=== PATIENT | female | born 1930 | race Caucasian/White ===

== ENCOUNTER → 2016-06-09 | Outpatient (REF) | payer MEDICARE, OTHER ==
[~2016-06-09] MED LIST: /ADVA50050 IN; /ALEN70TA OR; /AUGM875TA OR; /CELE20CA PO; /MAGN64TA PO; /ONDA4TA JT; /TIOT18INH INH; /ZIAC5TA OR; ACET-654 PO; ACET500C OR; ACET500T PO; ACET65TA OR; ACID1CAP PO; ACIDCAP PO; ADVA250A INH; ALBU0.5N IN; ALBU17IN INH; ALBU83IN IN; ALBU83IN INH; ALBUTEROL INH; ALIG4CAP PO; ALIGN PO; ARTI99.0 OU; ASPI81TA PO; ASPI81TA3 OR; ASPI81TA85 PO; ATOR1TAB19 PO; ATOR1TAB21 PO; ATORVASTATIN PO; BACITAB PO; BISO10TA PO; BISO5TAB2 PO; BISO5TAB5 PO; BISOPROLOL-HCTZ PO; BROVANA INH; CALC-204 PO; CALC500T49 OR; CALCCHW12 OR; CARA1TAB2 PO; CEFT250T OR; CEFT500T OR; CEFT500T PO; CHEW500C2 PO; COLA100C2 OR; COMBVENT INH; D 101TAB PO; DEXILANT PO; DOCU10CA PO; DUONSOL INH; FLAG500T PO; FLEEENE4 PR; FLON0.05; FLON0.054; FLON1SPR; FLUT1LOT; FLUTICASONE; FLUTISP; FURO20TA2 PO; HYDRODIURIL PO; LASI20TA PO; LEVA500T PO; LIPI10TA PO; LIPITOR PO; LOPE2CA PO; MAAL600C PO; MACR100C3 PO; MAG-TAB OR; MAG400TA PO; MAGN250T OR; MAGN64TASA PO; MAGNESIUM OXIDE PO; METAMUCIL PO; MILKSUS OR; MILKSUS PO; MIRA3350 PO; MIRT1TAB PO; MIRT7.5T10 PO; MIRTAZAPINE PO; MUCI600T34 PO; MUCINEX OR; MUCOUS RELIEF PO; MUCU400T8 PO; MULTCAP PO; MULTIVIT PO; MULTTAB4 PO; Mirtazapine PO; NASA0.057; NASAL SPRAY; NYST50SS SS; NYSTATIN ORAL SS; NYSTPOW PO; OMEGA 369 PO; OMEGCAP9 PO; OMEP20CA3 PO; OMEP20TA7 OR; PANT20TA PO; PANT40TA2 PO; PANTOPROZOLE PO; PRED10TA2 OR; PRED1TAB32 PO; PRED20TA OR; PRED20TA PO; PRED50TA OR; PRED5PAK PO; PRED5TA PO; PRED5TAB OR; PULM0.5S IN; REME15TA PO; REME30TA PO; REMERON PO; SALI0.653; SENO17.2 OR; SPIR1CAP INH; SPIRIVA INH; SUCR1TA PO; SUCR1TAB56 PO; SYMB16INH INH; SYMBICORT INH; TRAM50TA2 PO; TRAZ50TA OR; TUMS500C PO; TUSSSUS5 PO; TYLE650T30 PO; ULTR50TA PO; VANC250C2 PO; VENTAER INH; VERAMIST; VITA100037 PO; VITA10006 PO; VITA400C29 PO; VITA500T OR; VITAD1000T PO; VITAMIN C PO; VITAMIN D PO; VITMTA PO; ZEBE5TAB PO; ZIAC1TAB PO; ZIAC2.5T PO; ZITH250T OR; [UNRECOGNIZED DRUG - OTHER] INH; [UNRECOGNIZED DRUG - OTHER] PO
[2016-06-09 14:27] LABS: ALBUMIN 3.5 GM/DL (3.2-5.2); ALBUMIN/GLOBULIN RATIO 1.25 (1.00-1.93); ALKALINE PHOSPHATASE 59 U/L (45-117); ALT/SGPT 67 U/L (12-78); ANION GAP 6 MEQ/L (8-16); AST/SGOT 53 U/L (15-37); BILIRUBIN,TOTAL 0.9 MG/DL (0.2-1.0); BLOOD UREA NITROGEN 19 MG/DL (7-18); CALCIUM LEVEL 8.9 MG/DL (8.8-10.2); CARBON DIOXIDE LEVEL 32 MEQ/L (21-32); CHLORIDE LEVEL 103 MEQ/L (98-107); CREATININE FOR GFR 0.86 MG/DL (0.55-1.02); GLOMERULAR FILTRATION RATE > 60.0 (>32); GLUCOSE, FASTING 106 MG/DL (83-110); POTASSIUM SERUM 4.7 MEQ/L (3.5-5.1); SODIUM LEVEL 141 MEQ/L (136-145); TOTAL PROTEIN 6.3 GM/DL (6.4-8.2)
== END ==
LOC: M SFHCPLAZ 10:24
PROVIDERS: ATTEND Internal Medicine
DX: I10 Essential (primary) hypertension (principal)

== ENCOUNTER → 2016-10-27 | Outpatient (REF) | payer MEDICARE, OTHER ==
[~2016-10-27] MED LIST changes: -CEFT500T PO; +CEFT500T3 PO
[2016-10-27 12:58] LABS: ALBUMIN 3.5 GM/DL (3.2-5.2); ALBUMIN/GLOBULIN RATIO 1.17 (1.00-1.93); ALKALINE PHOSPHATASE 64 U/L (45-117); ALT/SGPT 70 U/L (12-78); ANION GAP 7 MEQ/L (8-16); AST/SGOT 52 U/L (15-37); BILIRUBIN,TOTAL 0.6 MG/DL (0.2-1.0); BLOOD UREA NITROGEN 23 MG/DL (7-18); CARBON DIOXIDE LEVEL 32 MEQ/L (21-32); CHLORIDE LEVEL 106 MEQ/L (98-107); CHOLESTEROL LEVEL 149 MG/DL (<200); CREATININE FOR GFR 0.75 MG/DL (0.55-1.02); GLOMERULAR FILTRATION RATE > 60.0 (>32); GLUCOSE, FASTING 82 MG/DL (83-110); MAGNESIUM LEVEL 2.7 MG/DL (1.8-2.4); POTASSIUM SERUM 4.8 MEQ/L (3.5-5.1); SODIUM LEVEL 145 MEQ/L (136-145); TOTAL PROTEIN 6.5 GM/DL (6.4-8.2); TRIGLYCERIDES LEVEL 127 MG/DL (<150)
[2016-10-27 13:06] LABS: MEAN CORPUSCULAR HEMOGLOBIN 32.4 pg (27.0-33.0); MEAN CORPUSCULAR HGB CONC 32.5 g/dl (32.0-36.5); MEAN CORPUSCULAR VOLUME 99.5 fl (80.0-96.0); RED CELL DISTRIBUTION WIDTH 12.5 % (11.5-14.5); WHITE BLOOD COUNT 11.2 K/mm3 (4.0-10.0)
== END ==
LOC: M SFHCPLAZ 08:26
PROVIDERS: ATTEND Internal Medicine
DX: Z85.3 Personal history of malignant neoplasm of breast (principal); I10 Essential (primary) hypertension; E78.00 Pure hypercholesterolemia, unspecified; M81.0 Age-related osteoporosis without current pathological fracture

== ENCOUNTER → 2017-03-07 | Outpatient (REF) | payer MEDICARE, OTHER ==
[~2017-03-07] MED LIST changes: -ACET-654 PO; +ACET1TAB17 PO; +ASPI81TAEC PO; +AZIT-12 PO; +CALC500T36 PO; +CEFD1CAP8 PO; +CHOL4POW4 PO; +LEVA1TAB2 PO; -LEVA500T PO; -MUCI600T34 PO; +MUCI600T37 PO; +OMEG100011 PO; +PRED10TA2 PO; +VITA-110 PO; -VITA100037 PO; +VITA100067 PO; -VITA400C29 PO
[2017-03-07 14:15] LABS: ALBUMIN 3.4 GM/DL (3.2-5.2); ALBUMIN/GLOBULIN RATIO 1.06 (1.00-1.93); ALKALINE PHOSPHATASE 62 U/L (45-117); ALT/SGPT 40 U/L (12-78); ANION GAP 7 MEQ/L (8-16); AST/SGOT 35 U/L (15-37); BLOOD UREA NITROGEN 24 MG/DL (7-18); CALCIUM LEVEL 9.2 MG/DL (8.8-10.2); CARBON DIOXIDE LEVEL 26 MEQ/L (21-32); CHLORIDE LEVEL 109 MEQ/L (98-107); CREATININE FOR GFR 0.77 MG/DL (0.55-1.02); GLOMERULAR FILTRATION RATE > 60.0 (>32); GLUCOSE, FASTING 98 MG/DL (83-110); MAGNESIUM LEVEL 2.4 MG/DL (1.8-2.4); SODIUM LEVEL 142 MEQ/L (136-145); TOTAL PROTEIN 6.6 GM/DL (6.4-8.2)
[2017-03-07 14:16] LABS: POTASSIUM SERUM 5.5 MEQ/L (3.5-5.1)
== END ==
LOC: M SFHCPLAZ 09:28
PROVIDERS: ATTEND Internal Medicine
DX: I10 Essential (primary) hypertension (principal)

== ENCOUNTER 2017-03-15 01:52 | Inpatient (IN) | payer MEDICARE, OTHER ==
[~2017-03-15] VITALS: Ht 157.5 cm; Wt 47.2 kg
[~2017-03-15 01:52] MED LIST changes: -ASPI81TAEC PO; -AZIT-12 PO; -CALC500T36 PO; -CEFD1CAP8 PO; -CHOL4POW4 PO; -OMEG100011 PO; -PRED10TA2 PO
[2017-03-15] MEDS ORDERED: IPRATROPIUM 0.5MG/ALBUTEROL 2.5MG INH SOL UD 3ML (DUONEB)(J7620) NEB ONE (02:15)
[2017-03-15] MEDS ORDERED: methylPREDNISolone INJ 125 MG/2 ML VIAL (J2930) IV ONE (02:15)
[2017-03-15 02:26] LABS: BASO % 0.3 % (0.0-1.0); EOS # 0.5 10^3/uL (0.0-0.50); EOS % 5.8 % (0.0-3.0); IMMATURE GRANULOCYTE % 0.6 % (0-0); LYMPH # 0.9 10^3/uL (1.5-4.5); LYMPH % 9.7 % (24.0-44.0); MEAN CORPUSCULAR HEMOGLOBIN 31.7 pg (27.0-33.0); MEAN CORPUSCULAR HGB CONC 32.9 g/dl (32.0-36.5); MEAN CORPUSCULAR VOLUME 96.5 fl (80.0-96.0); MONO # 0.6 10^3/uL (0.0-0.8); MONO % 6.5 % (0.0-5.0); NEUTROPHILS # 6.9 10^3/uL (1.8-7.7); NEUTROPHILS % 77.1 % (36.0-66.0); PLATELET COUNT, AUTOMATED 246 10^3/uL (150-450)
[2017-03-15 02:37] LABS: ABG BASE EXCESS 1.4 (-2.0-2.0); ABG HCO3 24.4 MEQ/L (22.0-26.0); ABG PARTIAL PRESSURE CO2 33.7 mmHg (35.0-45.0); ABG PARTIAL PRESSURE O2 71.9 mmHg (75.0-100.0); ABG STANDARD HCO3 25.6 MEQ/L (22.0-26.0); ABG TOTAL CO2 25.4 MEQ/L (23.0-31.0); ABG pH (ARTERIAL) 7.477 UNITS (7.350-7.450)
[2017-03-15 02:58] LABS: ANION GAP 6 MEQ/L (8-16); BLOOD UREA NITROGEN 17 MG/DL (7-18); CALCIUM LEVEL 8.7 MG/DL (8.8-10.2); CARBON DIOXIDE LEVEL 29 MEQ/L (21-32); CHLORIDE LEVEL 103 MEQ/L (98-107); CREATININE FOR GFR 0.69 MG/DL (0.55-1.02); GLOMERULAR FILTRATION RATE > 60.0 (>32); GLUCOSE, FASTING 101 MG/DL (83-110); POTASSIUM SERUM 4.2 MEQ/L (3.5-5.1); SODIUM LEVEL 138 MEQ/L (136-145)
[2017-03-15] MEDS ORDERED: DOXYCYCLINE HYCLATE 100 MG in D5W MINI-BAG PLUS 100 ML IV ONE (04:00)
[2017-03-15] MEDS ORDERED: ACETAMINOPHEN TAB 650MG DOSE (2X325MG) PO PRN (04:45)
[2017-03-15] MEDS ORDERED: IPRATROPIUM 0.5MG/ALBUTEROL 2.5MG INH SOL UD 3ML (DUONEB)(J7620) NEB PRN (04:45)
[2017-03-15] MEDS ORDERED: ONDANSETRON 4MG/2ML VIAL (J2405) IV PRN (04:45)
--- NOTE | 2017-03-15 04:49 | HPEPDOC ---
General Date of Admission 03/15/17 Primary Care Physician: Maximiliano Clark Attending Physician: ARIEL BARBA MD Chief Complaint The patient is a 86-year-old female admitted with a reason for visit of oxygen issues. Source: Patient, Family Exam Limitations: No limitations History of Present Illness 86-year-old female with past medical history of hypertension, dyslipidemia, depression, GERD, COPD on 3 L of oxygen and steroid dependent, history of bilateral breast cancer status post lumpectomy, radiation, and tamoxifen presented to the ER with chief complaint of increased shortness of breath and a productive cough over last 1 week. The patient states that she has been having a cough productive of yellowish sputum over the last 1 week. This was also accompanied by an increase of shortness of breath compared to her baseline. The patient denies any sick contacts, but states that she has been feeling lethargic and tired with generalized aches and pains. She denies any acute complaints of fevers, chills, chest pain, palpitations, abdominal pain, PND, lower extremity swelling, or any nausea/vomiting. Home Medications Scheduled ([place] 3-6-9 Complex) 1 Cap Cap, 1 CAP PO DAILY, (Reported) (Acidophilus) 1 Cap Cap, 1 CAP PO DAILY, (Reported) (Flonase Allergy Relief) 50 Mcg/Act Spr, 1 SPRAY NA BID, (Reported) (Align) 4 Mg Cap, 4 MG PO TID, (Reported) Ascorbic Acid (Vitamin C) 1,000 Mg Tab, 1,000 MG PO DAILY, (Reported) Aspirin (Aspir-81) 81 Mg Tab, 81 MG PO DAILY, (Reported) Atorvastatin Calcium (Atorvastatin Calcium) 10 Mg Tab, 5 MG PO 3XW, (Reported) TUES, THURS, SAT Bisoprolol Fumarate (Bisoprolol Fumarate) 5 Mg Tab, 5 MG PO DAILY, (Reported) Budesonide/Formoterol (Symbicort 160-4.5 Mcg/Act) 60 Puff/Inhaler Aers, 2 PUFF INH BID, (Reported) Cholecalciferol (D 1000) 1,000 Unit Tab, 1,000 UNIT PO DAILY, (Reported) Guaifenesin (Mucus Relief) 400 Mg Tab, 400 MG PO DAILY, (Reported) Magnesium Chloride (Mag64) 64 Mg Tabcr, 64 MG PO DAILY, (Reported) Mirtazapine (Remeron) 30 Mg Tab, 30 MG PO QHS, (Reported) Multivitamins *[facility] STOCKED* (Thera M Plus *[facility] STOCKED*) 1 Tab Tab, 1 TAB PO DAILY, (Reported) Nystatin (Nystatin Oral Susp) 5 Ml Susp, 5 ML SS BID, (Reported) Pantoprazole Sodium (Pantoprazole Sodium) 40 Mg Tab, 40 MG PO DAILY, (Reported) Prednisone (Prednisone) 5 Mg Tab, 5 MG PO DAILY, (Reported) Scheduled PRN Albuterol Sulfate (Albuterol Sulfate) 2.5 Mg/3 Ml Nebu, 2.5 MG INH Q4HP PRN for SHORTNESS OF BREATH, (Reported) Albuterol Sulfate (Ventolin Hfa) 200 Puff/8 Gm Aers, 2 PUFF INH Q4HP PRN for SOB /WHEEZING, (Reported) Artificial Tears (Artificial Tears) 1.4 % Ava, 1 DROP OU PRN PRN for DRY EYES, ( Reported) Loperamide HCl (Loperamide HCl) 2 Mg Cap, 2 MG PO ASDIRECTED PRN for DIARRHEA Allergies Coded Allergies: Codeine (Verified Allergy, Intermediate, NAUSEA / SOB, 09/02/12) Quinolones (Verified Allergy, Intermediate, ANGIOEDEMA / SOB, 09/02/12) VERÓNICA Inhibitors (Verified Adverse Reaction, Severe, ANGIOEDEMA, 09/02/12) Azelastine (Verified Adverse Reaction, Intermediate, NASAL ULCERS, 09/02/12) Past Medical History Medical History As noted in HPI. Surgical History APPENDECTOMY 04/20/1960 CHOLECYSTECTOMY 04/20/1970 LUMPECTOMY, LEFT BREAST AND AXILLARY LYMPH NODE DISSECTION -RADIATION TX FOR BREAST CANCER 1990 LUMPECTOMY, RIGHT BREAST AND AXILLARY LYMPH NODE DISSECTION-RADIATION TX-FOR BREAST CANCER 04/20/1997 HYSTERECTOMY, TOTAL WITH BSO FOR ENDOMETRIAL DYSPLASIA 04/20/1999 BILATERAL CATARACTS REMOVAL- OD-01/2005, OS-05/0205/20/05,02/17/05 COLONOSCOPY 08/31/2006 MESENTERIC VASCULAR STENT PLACEMENT 12/18/2010 UPPER ENDOSCOPY 12/05/2012 Family History Significant Family History: No pertinent family hx Social History * Smoker: former Smoker Alcohol: Denies Drugs: denies Lives by herself, ambulates with a single-point cane. Is functionally independent at baseline. Review of Symptoms Other systems 10 point review of systems negative unless otherwise specified in HPI. Physical Examination General Exam: Positive: Alert, Cooperative, No Acute Distress ENT Exam: Positive: Atraumatic, Mucous membr. moist/pink Neck Exam: Negative: JVD Chest Exam: Positive: Diminished Heart Exam: Positive: Rate Normal, Normal S1, Normal S2 Abdomen Exam: Positive: Soft, Negative: Tenderness Extremity Exam: Negative: Tenderness, Swelling Psych Exam: Positive: Oriented x 3 Vital Signs Vital Signs Date Time Temp Pulse Resp B/P (MAP) Pulse Ox O2 Delivery O2 Flow Rate FiO2 03/15/17 04:26 101.7 03/15/17 04:12 20 95 Nasal Cannula 3.0 03/15/17 04:07 90 Laboratory Data Labs 24H Laboratory Tests 2 03/15/17 02:15: Immature Granulocyte % (Auto) 0.6H, White Blood Count 9.0, Red Blood Count 4.32 , Hemoglobin 13.7, Hematocrit 41.7, Mean Corpuscular Volume 96.5H, Mean Corpuscular Hemoglobin 31.7, Mean Corpuscular Hemoglobin Concent 32.9, Red Cell Distribution Width 13.0, Platelet Count 246, Neutrophils (%) (Auto) 77.1H, Lymphocytes (%) (Auto) 9.7L, Monocytes (%) (Auto) 6.5H, Eosinophils (%) (Auto) 5.8H, Basophils (%) (Auto) 0.3, Neutrophils # (Auto) 6.9, Lymphocytes # (Auto) 0.9L, Monocytes # (Auto) 0.6, Eosinophils # (Auto) 0.5, Basophils # (Auto) 0.0, Immature Granulocyte # (Auto) 0.1H, Nucleated Red Blood Cells % (auto) 0.0, Anion Gap 6L, Glomerular Filtration Rate > 60.0, Lactic Acid Level 1.9, Blood Urea Nitrogen 17, Creatinine 0.69, Sodium Level 138, Potassium Level 4.2, Chloride Level 103, Carbon Dioxide Level 29, Calcium Level 8.7L, LC-Cmc-W-Type Natriuretic Peptide 467H 03/15/17 02:23: Blood Gas Bicarbonate Standard 25.6, Arterial Blood pH 7.477H, Arterial Blood Partial Pressure CO2 33.7L, Arterial Blood Partial Pressure O2 71.9L, Arterial Blood Total CO2 25.4, Arterial Blood HCO3 24.4, Arterial Blood Base Excess 1.4, Arterial Blood Oxygen Saturation 95.9 CBC/BMP Laboratory Tests 03/15/17 02:15 Red Blood Count 4.32, Mean Corpuscular Volume 96.5 H, Mean Corpuscular Hemoglobin 31.7, Mean Corpuscular Hemoglobin Concent 32.9, Red Cell Distribution Width 13.0, Neutrophils (%) (Auto) 77.1 H, Lymphocytes (%) (Auto) 9.7 L, Monocytes (%) (Auto) 6.5 H, Eosinophils (%) (Auto) 5.8 H, Basophils (%) ( Auto) 0.3, Neutrophils # (Auto) 6.9, Lymphocytes # (Auto) 0.9 L, Monocytes # ( Auto) 0.6, Eosinophils # (Auto) 0.5, Basophils # (Auto) 0.0, Calcium Level 8.7 L Plan / VTE VTE Prophylaxis Ordered?: Yes Plan Plan COPD Exacerbation CXR, ABG noted Blood culture, sputum culture, MRSA screen, respiratory panel ordered We will start the patient on Rocephin and azithromycin Solu-Medrol 40 mg every 8 hours IV Inhaler and nebulizer regimen as ordered We will continue to monitor the patient's respiratory status History of CAD Continue aspirin, statin, bisoprolol Hypertension, controlled Continue current regimen GERD Continue PPI Depression, stable Continue mirtazapine History of bilateral breast cancer status post lumpectomy, radiation, and tamoxifen DVT prophylaxis Lovenox subcutaneous CODE STATUS: DNR This patient will be admitted under the service of Dr. Barba, who will begin to follow the patient on 03/15/17 at 7 AM. MANDI TYSON MD Mar 15, 2017 04:49
[2017-03-15] MEDS ORDERED: SPIR1CAP INH (04:50)
[2017-03-15] MEDS ORDERED: ASPI81TAEC PO (04:50)
[2017-03-15] MEDS ORDERED: OMEG100011 PO (04:50)
[2017-03-15] MEDS ORDERED: CALC500T36 PO (04:50)
[2017-03-15] MEDS ORDERED: FURO20TA2 PO (04:50)
[2017-03-15] MEDS ORDERED: BACITAB PO (04:50)
[2017-03-15] MEDS ORDERED: CHOL4POW4 PO (04:50)
[2017-03-15] MEDS ORDERED: ALBU83IN INH (04:50)
[2017-03-15] MEDS: AZITHROMYCIN INJ 500 MG, VIAL MATE ADAPTER 1 EACH in D5W 250 ML IV SCH (05:00)
[2017-03-15] MEDS ORDERED: CHOLESTYRAMINE 4 GM PWD PKT PO PRN (05:30)
[2017-03-15 06:00] VITALS: BP 146/67
[2017-03-15] MEDS ORDERED: cefTRIAXone SOD 1 GM in D5W 50 ML IV SCH (06:00)
[2017-03-15] MEDS: SYMBICORT 160/4.5MCG INHALER 6GM INH SCH ×2 (07:22→21:07)
[2017-03-15] MEDS: IPRATROPIUM 0.5MG/ALBUTEROL 2.5MG INH SOL UD 3ML (DUONEB)(J7620) NEB SCH ×5 (07:22→23:13)
[2017-03-15 07:45] VITALS: BP 106/50
--- NOTE | 2017-03-15 08:30 | ECGEPIP ---
Stationary ECG Study [facility] - ED Test Date: 2017-03-15 Pat Name: ESTEFANIA GARCIA Department: Room: [place] [address] Gender: F Marketing Ambassador: clari : [id number] Requested By: JÚNIOR Barrow Order Number: [id number] Reading MD: Lizz Ramos Measurements Intervals Rolfe Rate: 85 P: 45 LA: 126 QRS: -26 QRSD: 77 T: 51 QT: 329 QTc: 393 Interpretive Statements SINUS RHYTHM POSSIBLE LEFT ATRIAL ENLARGEMENT BORDERLINE LEFT AXIS DEVIATION BASELINE ARTIFACT LIMITS INTERPRETATION Electronically Signed On 03-15-2017 8:29:52 EDT by Lizz Ramos
--- NOTE | 2017-03-15 09:10 | REP ---
PORTABLE CHEST: AP portable view of the chest is performed and compared to prior study of 12/01/2016. Interstitial fibrosis is again seen in the lung bases, stable. No definite superimposed acute infiltrate is seen. Heart is not significantly enlarged. There is calcification and tortuosity of the thoracic aorta. The mediastinal silhouette is unchanged. IMPRESSION: Stable chronic fibrotic changes without acute infiltrate. Signed by Mele Salazar MD 03/15/2017 01:00 P
[2017-03-15] MEDS: ASCORBIC ACID 500 MG TAB PO SCH (09:26)
[2017-03-15] MEDS: LACTOBACILLUS ACIDOPHILUS CAP (BACID) PO SCH (09:26)
[2017-03-15] MEDS: ENOXAPARIN 30 MG/0.3 ML SYR (J1650) SC SCH (09:26)
[2017-03-15] MEDS: BISOPROLOL FUMARATE 5 MG TAB PO SCH (09:26)
[2017-03-15] MEDS: MULTIVITAMINS/MINERALS THERAP 1 TAB PO SCH (09:26)
[2017-03-15] MEDS: ASPIRIN 81 MG ENTERIC TAB PO SCH (09:26)
[2017-03-15] MEDS: VITAMIN D 1,000 INTERNATIONAL UNITS TABLET PO SCH (09:26)
[2017-03-15] MEDS: MAGNESIUM CHLORIDE 64 MG TABCR (SLO MAG) PO SCH (09:34)
[2017-03-15] MEDS: POLYVINYL ALCOHOL OPHTH SOLN 15 ML(LIQUITEARS) OU SCH ×2 (09:34→21:24)
[2017-03-15] MEDS: FLUTICASONE PROP 0.05% NASAL SPRAY 16 GM (FLONASE) SCH ×2 (09:34→21:24)
[2017-03-15] MEDS ORDERED: methylPREDNISolone INJ 40 MG/1 ML VIAL (J2920) IV SCH (10:00)
[2017-03-15] MEDS: CEFEPIME HCL 1 GM in D5W 50 ML IV SCH (12:25)
[2017-03-15 16:10] VITALS: BP 116/57
--- NOTE | 2017-03-15 16:59 | IPN ---
DATE: 03/15/2017 The patient is seen and examined. Reported improved respiration. Reported a bit of shakiness, possibly secondary to steroids. Denies any chest pain, pressure or discomfort. Continues to have cough. Denies any fevers or chills. VITAL SIGNS: Temperature 97.6, pulse 82, respirations 20, blood pressure 106/50, pulse oximetry 100% on three liters nasal cannula. LABORATORY DATA: WBC 9, hemoglobin and hematocrit 13.7/41.7, platelets 246. Chemistry: Sodium 138, potassium 4.2, chloride 103, bicarbonate 29, BUN 17, creatinine 0.69. PHYSICAL EXAMINATION: GENERAL: The patient is alert and oriented times three, in no acute distress. HEENT: Normocephalic, atraumatic. PULMONARY: Diminished breath sounds bilaterally. CARDIAC: Regular rate and rhythm with normal S1, S2. ABDOMEN: Soft, nontender. Positive bowel sounds. EXTREMITIES: No clubbing, cyanosis, or edema. ASSESSMENT AND PLAN: This is an 86-year-old female patient with underlying medical history of hypertension, dyslipidemia, depression, gastroesophageal reflux disease (GERD), chronic obstructive pulmonary disease (COPD) on three liters of oxygen at home, steroid dependent, history of bilateral breast cancer status post lumpectomy, radiation, tamoxifen who presented to the emergency room with shortness of breath and productive cough for one week. PROBLEM LIST: 1. Acute chronic obstructive pulmonary disease (COPD) exacerbation, possibly secondary to community-acquired bacterial pneumonia. The patient has a history of Pseudomonas in sputum cultures. Continue azithromycin, Rocephin switched to cefepime for pseudomonal coverage. Solu-Medrol, taper as tolerated. Continue inhalers and nebulizers and followup cultures. 2. Coronary artery disease. Continue aspirin, statin. The patient does not have any chest pain. Monitor blood pressure. Continue beta blockers. 3. Depression. Continue home medication. 4. Gastroesophageal reflux disease (GERD). Continue current medication. 5. Dyslipidemia. Continue statin. 6. Hypertension. Continue current medication. Monitor blood pressure. 7. History of breast cancer. Continue tamoxifen. Status post lumpectomy and radiation. Outpatient followup. 8. Deep vein thrombosis (DVT) prophylaxis, Lovenox subcutaneous. DISPOSITION: The patient is DO NOT RESUSCITATE (DNR), pending clinical improvement. We will transfer the patient to the medical/surgical floor.
[2017-03-15 19:15] VITALS: BP 142/64
[2017-03-15] MEDS: MIRTAZAPINE 15 MG TAB PO SCH (21:23)
[2017-03-15] MEDS: methylPREDNISolone INJ 40 MG/1 ML VIAL (J2920) IV SCH (21:24)
[2017-03-15 22:00] VITALS: BP 110/53
[2017-03-16] MEDS: IPRATROPIUM 0.5MG/ALBUTEROL 2.5MG INH SOL UD 3ML (DUONEB)(J7620) NEB SCH ×6 (03:09→23:01)
[2017-03-16] MEDS: AZITHROMYCIN INJ 500 MG, VIAL MATE ADAPTER 1 EACH in D5W 250 ML IV SCH (05:00)
[2017-03-16 06:00] VITALS: BP 151/70
[2017-03-16 06:42] LABS: BASO % 0.1 % (0.0-1.0); IMMATURE GRANULOCYTE % 0.4 % (0-0); LYMPH # 0.8 10^3/uL (1.5-4.5); LYMPH % 8.7 % (24.0-44.0); MEAN CORPUSCULAR HEMOGLOBIN 31.3 pg (27.0-33.0); MEAN CORPUSCULAR HGB CONC 32.8 g/dl (32.0-36.5); MEAN CORPUSCULAR VOLUME 95.5 fl (80.0-96.0); MONO # 0.5 10^3/uL (0.0-0.8); NEUTROPHILS # 8.1 10^3/uL (1.8-7.7); NEUTROPHILS % 85.8 % (36.0-66.0); PLATELET COUNT, AUTOMATED 229 10^3/uL (150-450); RED CELL DISTRIBUTION WIDTH 13.2 % (11.5-14.5); WHITE BLOOD COUNT 9.4 10^3/uL (4.0-10.0)
[2017-03-16 07:02] LABS: ANION GAP 6 MEQ/L (8-16); BLOOD UREA NITROGEN 22 MG/DL (7-18); CALCIUM LEVEL 8.4 MG/DL (8.8-10.2); CARBON DIOXIDE LEVEL 28 MEQ/L (21-32); CHLORIDE LEVEL 106 MEQ/L (98-107); CREATININE FOR GFR 0.76 MG/DL (0.55-1.02); GLOMERULAR FILTRATION RATE > 60.0 (>32); GLUCOSE, FASTING 223 MG/DL (83-110); MAGNESIUM LEVEL 2.5 MG/DL (1.8-2.4); POTASSIUM SERUM 4.5 MEQ/L (3.5-5.1); SODIUM LEVEL 140 MEQ/L (136-145)
[2017-03-16] MEDS: SYMBICORT 160/4.5MCG INHALER 6GM INH SCH ×2 (07:42→21:00)
[2017-03-16] MEDS: LACTOBACILLUS ACIDOPHILUS CAP (BACID) PO SCH (09:12)
[2017-03-16] MEDS: MAGNESIUM CHLORIDE 64 MG TABCR (SLO MAG) PO SCH (09:12)
[2017-03-16] MEDS: methylPREDNISolone INJ 40 MG/1 ML VIAL (J2920) IV SCH ×2 (09:13→21:17)
[2017-03-16] MEDS: ENOXAPARIN 30 MG/0.3 ML SYR (J1650) SC SCH (09:13)
[2017-03-16] MEDS: ASCORBIC ACID 500 MG TAB PO SCH (09:13)
[2017-03-16] MEDS: FLUTICASONE PROP 0.05% NASAL SPRAY 16 GM (FLONASE) SCH ×2 (09:14→21:17)
[2017-03-16] MEDS: ASPIRIN 81 MG ENTERIC TAB PO SCH (09:14)
[2017-03-16] MEDS: VITAMIN D 1,000 INTERNATIONAL UNITS TABLET PO SCH (09:14)
[2017-03-16] MEDS: BISOPROLOL FUMARATE 5 MG TAB PO SCH (09:14)
[2017-03-16] MEDS: POLYVINYL ALCOHOL OPHTH SOLN 15 ML(LIQUITEARS) OU SCH ×2 (09:14→21:17)
[2017-03-16] MEDS: MULTIVITAMINS/MINERALS THERAP 1 TAB PO SCH (09:14)
[2017-03-16] MEDS: ATORVASTATIN 10 MG TAB PO SCH (09:14)
[2017-03-16] MEDS ORDERED: MIRALAX *UNIT DOSE* 17GM PACKET PO PRN (10:45)
[2017-03-16] MEDS: CEFEPIME HCL 1 GM in D5W 50 ML IV SCH (12:35)
[2017-03-16] MEDS: SENOKOT S TAB PO SCH ×2 (12:35→21:18)
[2017-03-16 14:00] VITALS: BP 135/62
--- NOTE | 2017-03-16 15:12 | IPN ---
DATE: 03/16/2017 The patient is seen and examined. No acute events overnight. Denies any chest pain, pressure or discomfort. Respiratory much improved. Continued to have a nonproductive cough. No fevers or chills. VITAL SIGNS: Temperature 98.5, pulse 88, respirations 20, blood pressure 135/62, pulse oximetry 98% on one liter nasal cannula. LABORATORY DATA: WBC 9.4, hemoglobin and hematocrit 11.8/36, platelets 229. Chemistry: Sodium 140, potassium 4.5, chloride 106, bicarbonate 28, BUN 22, creatinine 0.76. PHYSICAL EXAMINATION: GENERAL: Patient alert and oriented times three, in no acute distress. HEENT: Normocephalic, atraumatic. PULMONARY: Diminished breath sounds bilaterally. CARDIAC: Regular rate and rhythm with normal S1, S2. ABDOMEN: Soft, nontender. Positive bowel sounds. EXTREMITIES: No clubbing, cyanosis, or edema. ASSESSMENT AND PLAN: This is an 86-year-old female patient with underlying medical history of hypertension, dyslipidemia, depression, gastroesophageal reflux disease (GERD), chronic obstructive pulmonary disease (COPD) on three liters of oxygen at home, steroid dependent, history of bilateral breast cancer status post lobectomy, radiation, tamoxifen who presented to the emergency room with shortness of breath and productive cough for one week. PROBLEM LIST: 1. Acute chronic obstructive pulmonary disease (COPD) exacerbation, possibly secondary to community-acquired bacterial pneumonia. The patient has a history of Pseudomonas in sputum. Continue azithromycin and cefepime, Solu-Medrol, taper as tolerated. Continue inhalers and nebulizer treatments and followup cultures. 2. Coronary artery disease. Continue aspirin and statin. The patient does not have any chest pain. Continue to monitor. Continue beta blockers. 3. Depression. Continue home medication. 4. Gastroesophageal reflux disease (GERD). Continue proton pump inhibitor (PPI). 5. Dyslipidemia. Continue statin. 6. Hypertension. Continue current medication. Monitor blood pressure. 7. History of breast cancer. Continue tamoxifen after discharge. Status post lobectomy and radiation. Outpatient followup. 8. Deep vein thrombosis (DVT) prophylaxis. Lovenox subcutaneous. DISPOSITION: The patient is DO NOT RESUSCITATE (DNR), pending clinical improvement.
[2017-03-16] MEDS: MIRTAZAPINE 15 MG TAB PO SCH (21:18)
[2017-03-16 22:00] VITALS: BP 144/67
[2017-03-17] MEDS: IPRATROPIUM 0.5MG/ALBUTEROL 2.5MG INH SOL UD 3ML (DUONEB)(J7620) NEB SCH ×6 (03:47→23:23)
[2017-03-17] MEDS: AZITHROMYCIN INJ 500 MG, VIAL MATE ADAPTER 1 EACH in D5W 250 ML IV SCH (05:02)
[2017-03-17 06:00] VITALS: BP 149/67
[2017-03-17 07:42] LABS: BASO % 0.1 % (0.0-1.0); LYMPH # 0.8 10^3/uL (1.5-4.5); LYMPH % 6.5 % (24.0-44.0); MEAN CORPUSCULAR HEMOGLOBIN 31.1 pg (27.0-33.0); MEAN CORPUSCULAR VOLUME 97.4 fl (80.0-96.0); MONO # 0.6 10^3/uL (0.0-0.8); MONO % 4.8 % (0.0-5.0); NEUTROPHILS # 10.7 10^3/uL (1.8-7.7); NEUTROPHILS % 87.6 % (36.0-66.0); PLATELET COUNT, AUTOMATED 239 10^3/uL (150-450); RED CELL DISTRIBUTION WIDTH 13.5 % (11.5-14.5); WHITE BLOOD COUNT 12.2 10^3/uL (4.0-10.0)
[2017-03-17] MEDS: SYMBICORT 160/4.5MCG INHALER 6GM INH SCH ×2 (07:42→20:15)
[2017-03-17 08:00] LABS: ANION GAP 6 MEQ/L (8-16); BLOOD UREA NITROGEN 28 MG/DL (7-18); CALCIUM LEVEL 8.7 MG/DL (8.8-10.2); CARBON DIOXIDE LEVEL 29 MEQ/L (21-32); CHLORIDE LEVEL 105 MEQ/L (98-107); CREATININE FOR GFR 0.67 MG/DL (0.55-1.02); GLOMERULAR FILTRATION RATE > 60.0 (>32); GLUCOSE, FASTING 194 MG/DL (83-110); MAGNESIUM LEVEL 2.8 MG/DL (1.8-2.4); POTASSIUM SERUM 4.9 MEQ/L (3.5-5.1); SODIUM LEVEL 140 MEQ/L (136-145)
[2017-03-17] MEDS: VITAMIN D 1,000 INTERNATIONAL UNITS TABLET PO SCH (08:49)
[2017-03-17] MEDS: MULTIVITAMINS/MINERALS THERAP 1 TAB PO SCH (08:49)
[2017-03-17] MEDS: BISOPROLOL FUMARATE 5 MG TAB PO SCH (08:49)
[2017-03-17] MEDS: LACTOBACILLUS ACIDOPHILUS CAP (BACID) PO SCH (08:49)
[2017-03-17] MEDS: SENOKOT S TAB PO SCH ×2 (08:49→20:40)
[2017-03-17] MEDS: POLYVINYL ALCOHOL OPHTH SOLN 15 ML(LIQUITEARS) OU SCH ×2 (08:50→20:41)
[2017-03-17] MEDS: predniSONE 20 MG TAB PO SCH (08:50)
[2017-03-17] MEDS: FLUTICASONE PROP 0.05% NASAL SPRAY 16 GM (FLONASE) SCH ×2 (08:50→20:41)
[2017-03-17] MEDS: ASPIRIN 81 MG ENTERIC TAB PO SCH (08:50)
[2017-03-17] MEDS: MAGNESIUM CHLORIDE 64 MG TABCR (SLO MAG) PO SCH (08:50)
[2017-03-17] MEDS: ASCORBIC ACID 500 MG TAB PO SCH (08:50)
[2017-03-17] MEDS: ENOXAPARIN 30 MG/0.3 ML SYR (J1650) SC SCH (08:50)
[2017-03-17] MEDS: CEFEPIME HCL 1 GM in D5W 50 ML IV SCH (13:58)
[2017-03-17 14:00] VITALS: BP 140/63
--- NOTE | 2017-03-17 16:21 | IPN ---
DATE: 03/17/2017 The patient is seen and examined. No acute events overnight. Denies any chest pain, pressure or discomfort. VITAL SIGNS: Temperature 97.7, pulse 82, respirations 19, blood pressure 140/63, pulse oximetry 99% on 2 liters nasal cannula. LABORATORY DATA: WBC 12.2, hemoglobin and hematocrit 11.8/36.9, platelets 239. Chemistry: Sodium 140, potassium 4.9, chloride 105, bicarbonate 29, BUN 28, creatinine 0.67, C-reactive protein down to 1.46. PHYSICAL EXAMINATION: GENERAL: Patient alert and oriented times three, in no acute distress. HEENT: Normocephalic, atraumatic. PULMONARY: Diminished breath sounds bilaterally. CARDIAC: Regular rate and rhythm, normal S1, S2. ABDOMEN: Soft, nontender. Positive bowel sounds. EXTREMITIES: No clubbing, cyanosis, or edema. ASSESSMENT AND PLAN: This is an 87-year-old female patient with underlying medical history of hypertension, dyslipidemia, depression, gastroesophageal reflux disease (GERD), chronic obstructive pulmonary disease (COPD) on 3 liters of oxygen at home, steroid dependent, history of bilateral breast cancer status post lumpectomy, radiation, tamoxifen. Patient presented to the emergency room with shortness of breath and productive cough for one week. 1. Acute chronic obstructive pulmonary disease (COPD) exacerbation, possibly secondary to community-acquired bacterial pneumonia. The patient has a history of Pseudomonas in sputum. Azithromycin and cefepime. Solu-Medrol, taper steroid to prednisone. Nebulizer treatments. Followup cultures. 2. Coronary artery disease. Continue aspirin and statin. Patient does not have any chest pain. Continue to monitor. Continue beta blockers. 3. Depression. Continue home medication. 4. Gastroesophageal reflux disease (GERD). Continue proton pump inhibitor (PPI). 5. Dyslipidemia. Continue statin. 6. Hypertension. Continue current medication. Monitor blood pressure. 7. History of breast cancer. Continue current medication. Followup after discharge. Status post lumpectomy and radiation. Outpatient followup. 8. Deep venous thrombosis (DVT) prophylaxis. Lovenox subcutaneous. DISPOSITION: The patient is DO NOT RESUSCITATE. Pending clinical improvement. Likely discharge over the next 24 hours.
[2017-03-17] MEDS: MIRTAZAPINE 15 MG TAB PO SCH (20:40)
[2017-03-17 22:00] VITALS: BP 121/69
[2017-03-18] MEDS: IPRATROPIUM 0.5MG/ALBUTEROL 2.5MG INH SOL UD 3ML (DUONEB)(J7620) NEB SCH ×3 (03:13→11:11)
[2017-03-18 06:00] VITALS: BP 133/71
[2017-03-18 06:13] LABS: BASO % 0.1 % (0.0-1.0); EOS % 0.2 % (0.0-3.0); IMMATURE GRANULOCYTE % 0.8 % (0-0); LYMPH # 2.8 10^3/uL (1.5-4.5); MEAN CORPUSCULAR HEMOGLOBIN 31.4 pg (27.0-33.0); MEAN CORPUSCULAR HGB CONC 32.5 g/dl (32.0-36.5); MEAN CORPUSCULAR VOLUME 96.4 fl (80.0-96.0); MONO # 1.1 10^3/uL (0.0-0.8); MONO % 8.4 % (0.0-5.0); NEUTROPHILS # 9.4 10^3/uL (1.8-7.7); NEUTROPHILS % 69.5 % (36.0-66.0); PLATELET COUNT, AUTOMATED 262 10^3/uL (150-450); RED CELL DISTRIBUTION WIDTH 13.7 % (11.5-14.5); WHITE BLOOD COUNT 13.5 10^3/uL (4.0-10.0)
[2017-03-18 06:40] LABS: ANION GAP 7 MEQ/L (8-16); BLOOD UREA NITROGEN 28 MG/DL (7-18); CALCIUM LEVEL 8.5 MG/DL (8.8-10.2); CARBON DIOXIDE LEVEL 28 MEQ/L (21-32); CHLORIDE LEVEL 109 MEQ/L (98-107); CREATININE FOR GFR 0.71 MG/DL (0.55-1.02); GLOMERULAR FILTRATION RATE > 60.0 (>32); GLUCOSE, FASTING 86 MG/DL (83-110); MAGNESIUM LEVEL 2.7 MG/DL (1.8-2.4); POTASSIUM SERUM 4.4 MEQ/L (3.5-5.1); SODIUM LEVEL 144 MEQ/L (136-145)
[2017-03-18] MEDS: SYMBICORT 160/4.5MCG INHALER 6GM INH SCH (07:43)
[2017-03-18] MEDS: SENOKOT S TAB PO SCH (08:24)
[2017-03-18] MEDS: LACTOBACILLUS ACIDOPHILUS CAP (BACID) PO SCH (08:24)
[2017-03-18] MEDS: ATORVASTATIN 10 MG TAB PO SCH (08:24)
[2017-03-18 08:25] VITALS: BP 133/71
[2017-03-18] MEDS: ASPIRIN 81 MG ENTERIC TAB PO SCH (08:25)
[2017-03-18] MEDS: predniSONE 20 MG TAB PO SCH (08:25)
[2017-03-18] MEDS: BISOPROLOL FUMARATE 5 MG TAB PO SCH (08:25)
[2017-03-18] MEDS: VITAMIN D 1,000 INTERNATIONAL UNITS TABLET PO SCH (08:25)
[2017-03-18] MEDS: ASCORBIC ACID 500 MG TAB PO SCH (08:25)
[2017-03-18] MEDS: MULTIVITAMINS/MINERALS THERAP 1 TAB PO SCH (08:25)
[2017-03-18] MEDS: POLYVINYL ALCOHOL OPHTH SOLN 15 ML(LIQUITEARS) OU SCH (08:26)
[2017-03-18] MEDS: MAGNESIUM CHLORIDE 64 MG TABCR (SLO MAG) PO SCH (08:26)
[2017-03-18] MEDS: ENOXAPARIN 30 MG/0.3 ML SYR (J1650) SC SCH (08:26)
[2017-03-18] MEDS: FLUTICASONE PROP 0.05% NASAL SPRAY 16 GM (FLONASE) SCH (08:27)
[2017-03-18] MEDS ORDERED: AZITHROMYCIN 250 MG TAB PO SCH (09:00)
[2017-03-18] MEDS ORDERED: PRED10TA2 PO (09:35)
[2017-03-18] MEDS ORDERED: AZIT-12 PO (09:35)
[2017-03-18] MEDS ORDERED: CEFD1CAP8 PO (09:35)
[2017-03-18] MEDS: CEFEPIME HCL 1 GM in D5W 50 ML IV SCH (11:54)
--- NOTE | 2017-03-18 17:54 | DSES ---
DATE OF ADMISSION: 03/15/2017 DATE OF DISCHARGE: 03/18/2017 PRIMARY CARE PROVIDER: Maximiliano Clark. FINAL DIAGNOSES: 1. Community-acquired bacterial pneumonia. 2. Acute chronic obstructive pulmonary disease (COPD) exacerbation. 3. Coronary arterial disease. 4. Depression. 5. Gastroesophageal reflux disease (GERD). 6. Dyslipidemia. 7. Hypertension. 8. History of breast cancer. HISTORY OF PRESENT ILLNESS: This is an 87-year-old female patient with underlying medical history of hypertension, dyslipidemia, depression, GERD, COPD on three liters oxygen at home, steroid dependent, history of bilateral breast cancer, status post lobectomy, radiation and on tamoxifen, who presented to the emergency department (ED) with chief complaint of shortness of breath and productive cough for one week. The patient stated that she has been having cough productive of yellow sputum over the last week and has been accompanied with increasing shortness of breath compared to her baseline. The patient denies any sick contacts, but has been feeling generalized weak and lethargic with diffuse aches. No other complaints. Denies any fevers, chills, chest pain, pressure, discomfort, lower extremity swelling. HOSPITAL COURSE: The patient was admitted to the hospital. Respiratory panel has been negative, as well as methicillin-resistant Staphylococcus aureus (MRSA) screening. Previous culture positive for Pseudomonas. The patient was initially started on azithromycin and Rocephin given Pseudomonas history. The patient's antibiotic has been switched to azithromycin and cefepime, as well as Solu-Medrol has been given. Steroid has been adjusted. Nebulizer treatment. The patient's condition progressively improved. The patient's steroid has been tapered. C-reactive protein gradually improved as well. The patient currently feels comfortable, back to baseline. Home safety evaluation has been done. The patient feels comfortable, back to baseline, ready for discharge for further care as outpatient. OBJECTIVE: VITAL SIGNS: Temperature 96.9, pulse 73, respirations 17, blood pressure 133/71, pulse oximetry 95% on three liters nasal cannula. GENERAL: Patient alert, comfortable, in no acute distress. HEENT: Normocephalic, atraumatic. PULMONARY: Bilaterally clear to auscultation. CARDIAC: Regular rate and rhythm. Normal S1, S2. ABDOMEN: Soft, nontender. Positive bowel sounds. EXTREMITIES: No clubbing, cyanosis or edema. LABORATORY DATA: WBC 13.5, hemoglobin and hematocrit 12.3 over 37.8, platelets 262. Chemistry sodium 144, potassium 4.4, chloride 109, bicarbonate 28, BUN 28, creatinine 0.7. C-reactive protein 0.8. DISCHARGE MEDICATIONS: - azithromycin 500 mg by mouth daily for five more days - cefdinir 300 mg by mouth twice a day for 10 more days - prednisone steroid taper 10 mg by mouth tablets, take four tablets by mouth daily for three days, then three tablets by mouth daily for three days, then two tablets daily for three days, and then one tablet daily for three days, and then resume previous steroid dosing - albuterol nebulizer treatment every four hours as needed - Ventolin inhaler every four hours as needed - artificial tears twice a day - vitamin C 1000 mg by mouth daily - aspirin 81 mg by mouth daily - Lipitor 5 mg by mouth daily - bisoprolol 5 mg by mouth daily - Symbicort 160/4.5 inhalation twice a day - vitamin D 1000 units by mouth daily - cholestyramine 4 grams by mouth daily as needed for diarrhea - Flonase intranasal twice a day - Lasix 20 mg by mouth daily as needed - guaifenesin 400 mg by mouth daily - Bacid one tablet by mouth daily - magnesium chloride 64 mg by mouth daily - Remeron 30 mg by mouth at bedtime - multivitamin one tablet by mouth daily - Nystatin oral swish and spit 5 mL twice a day - omega 3 fatty acid one capsule by mouth daily - oyster shell 500 mg by mouth daily - Spiriva inhalation daily DISCHARGE INSTRUCTIONS: The patient is instructed to followup with primary care provider in seven days and enterostomal nurse in two weeks. Return to the hospital if symptoms worsen.
== END 2017-03-18 13:08 | disposition home or self-care (01) | DRG 190 ==
LOC: M ED 01:52 → EDBD 01:52 → M ED INP 01:53 → M PCU 05:45 → OBSVTOIN 10:37 → M MSPAV 18:57
PROVIDERS: ADMIT Internal Medicine; ATTEND Hospitalist
DX: J44.1 Chronic obstructive pulmonary disease with (acute) exacerbation (principal); J18.9 Pneumonia, unspecified organism; I10 Essential (primary) hypertension; E78.5 Hyperlipidemia, unspecified; F32.9 Major depressive disorder, single episode, unspecified; K21.9 Gastro-esophageal reflux disease without esophagitis; I25.10 Atherosclerotic heart disease of native coronary artery without angina pectoris; Z85.3 Personal history of malignant neoplasm of breast; Z99.81 Dependence on supplemental oxygen; Z79.82 Long term (current) use of aspirin; Z79.52 Long term (current) use of systemic steroids; Z79.899 Other long term (current) drug therapy; Z88.5 Allergy status to narcotic agent; Z88.1 Allergy status to other antibiotic agents; Z88.8 Allergy status to other drugs, medicaments and biological substances; Z79.891 Long term (current) use of opiate analgesic; Z92.3 Personal history of irradiation

== ENCOUNTER 2017-12-04 19:50 | Emergency (ER) | payer MEDICARE, OTHER ==
[2017-12-04 20:11] LABS: BASO # 0.1 10^3/uL (0.0-0.2); BASO % 0.4 % (0.0-1.0); EOS # 0.5 10^3/uL (0.0-0.50); EOS % 4.1 % (0.0-3.0); HEMATOCRIT 38.9 % (36.0-47.0); HEMOGLOBIN 12.7 g/dl (12.0-15.5); IMMATURE GRANULOCYTE % 0.7 % (0-3.0); LYMPH # 3.9 10^3/uL (1.5-4.5); LYMPH % 30.9 % (24.0-44.0); MEAN CORPUSCULAR HEMOGLOBIN 32.3 pg (27.0-33.0); MEAN CORPUSCULAR HGB CONC 32.6 g/dl (32.0-36.5); MONO # 1.1 10^3/uL (0.0-0.8); MONO % 8.4 % (0.0-5.0); NEUTROPHILS % 55.5 % (36.0-66.0); PLATELET COUNT, AUTOMATED 292 10^3/uL (150-450); RED BLOOD COUNT 3.93 10^6/uL (4.00-5.40); RED CELL DISTRIBUTION WIDTH 12.9 % (11.5-14.5); WHITE BLOOD COUNT 12.7 10^3/uL (4.0-10.0)
[2017-12-04] MEDS: GI COCKTAIL 50ML BTL(HYOSCYAMINE/MAALOX/LIDOCAINE VISCOUS)(1:3:1) PO (20:42)
[2017-12-04] MEDS: PANTOPRAZOLE 40MG TAB (PROTONIX) PO (20:42)
[2017-12-04] MEDS: ASPIRIN 81 MG CHEW TABLET PO (20:44)
[2017-12-04 20:48] LABS: INR 1.01; PROTHROMBIN TIME 13.4 SECONDS (12.1-14.4)
[2017-12-04 21:35] LABS: ALBUMIN 3.4 GM/DL (3.2-5.2); ALBUMIN/GLOBULIN RATIO 1.26 (1.00-1.93); ALKALINE PHOSPHATASE 64 U/L (45-117); ALT/SGPT 44 U/L (12-78); ANION GAP 6 MEQ/L (8-16); AST/SGOT 38 U/L (7-37); BILIRUBIN,DIRECT 0.1 MG/DL (0.0-0.2); BILIRUBIN,TOTAL 0.4 MG/DL (0.2-1.0); BLOOD UREA NITROGEN 21 MG/DL (7-18); CALCIUM LEVEL 8.7 MG/DL (8.8-10.2); CARBON DIOXIDE LEVEL 33 MEQ/L (21-32); CHLORIDE LEVEL 106 MEQ/L (98-107); CPK CREATINE PHOSPHOKINASE 55 U/L (26-192); CREATININE FOR GFR 0.74 MG/DL (0.55-1.30); GLOMERULAR FILTRATION RATE > 60.0 (>32); GLUCOSE, FASTING 103 MG/DL (70-100); LIPASE 156 U/L (73-393); POTASSIUM SERUM 3.8 MEQ/L (3.5-5.1); SODIUM LEVEL 145 MEQ/L (136-145); TOTAL PROTEIN 6.1 GM/DL (6.4-8.2); TROPONIN I < 0.02 NG/ML (< 0.10)
[2017-12-04 21:36] LABS: CK-MB VALUE MASS 1.1 NG/ML (<3.6); NT-PRO BNP 364 PG/ML (<450)
[2017-12-04] MEDS ORDERED: ISOVUE-370 76% 100ML VIAL (Q9967) As Ordered (22:47)
[2017-12-05 02:32] LABS: CPK CREATINE PHOSPHOKINASE 56 U/L (26-192); TROPONIN I < 0.02 NG/ML (< 0.10)
[2017-12-05 02:33] LABS: CK-MB VALUE MASS 1.1 NG/ML (<3.6); MB/CK RELATIVE INDEX 1.96 (< OR =4)
== END 2017-12-05 04:00 | disposition home or self-care (01) ==
LOC: M ED 12-05 04:00
DX: R91.8 Other nonspecific abnormal finding of lung field (principal); K86.2 Cyst of pancreas; I10 Essential (primary) hypertension; E78.5 Hyperlipidemia, unspecified; G47.00 Insomnia, unspecified; M81.0 Age-related osteoporosis without current pathological fracture; J44.9 Chronic obstructive pulmonary disease, unspecified; N28.1 Cyst of kidney, acquired; K52.9 Noninfective gastroenteritis and colitis, unspecified; K55.1 Chronic vascular disorders of intestine; F41.9 Anxiety disorder, unspecified; F32.9 Major depressive disorder, single episode, unspecified; Z85.3 Personal history of malignant neoplasm of breast; Z87.891 Personal history of nicotine dependence; K57.30 Diverticulosis of large intestine without perforation or abscess without bleeding; M51.36 Other intervertebral disc degeneration, lumbar region; M51.37 Other intervertebral disc degeneration, lumbosacral region; Z79.82 Long term (current) use of aspirin; Z79.899 Other long term (current) drug therapy; Z88.5 Allergy status to narcotic agent; Z88.8 Allergy status to other drugs, medicaments and biological substances
CPT/HCPCS: Q9967

== ENCOUNTER → 2018-03-12 | Outpatient (REF) | payer MEDICARE, OTHER ==
[2018-03-12 13:02] LABS: ALBUMIN 3.4 GM/DL (3.2-5.2); ALBUMIN/GLOBULIN RATIO 1.13 (1.00-1.93); ALKALINE PHOSPHATASE 60 U/L (45-117); ALT/SGPT 42 U/L (12-78); ANION GAP 6 MEQ/L (8-16); AST/SGOT 36 U/L (7-37); BILIRUBIN,TOTAL 0.7 MG/DL (0.2-1.0); BLOOD UREA NITROGEN 17 MG/DL (7-18); CALCIUM LEVEL 8.6 MG/DL (8.8-10.2); CARBON DIOXIDE LEVEL 31 MEQ/L (21-32); CHLORIDE LEVEL 106 MEQ/L (98-107); CREATININE FOR GFR 0.73 MG/DL (0.55-1.30); GLOMERULAR FILTRATION RATE > 60.0 (>32); GLUCOSE, FASTING 84 MG/DL (70-100); MAGNESIUM LEVEL 2.3 MG/DL (1.8-2.4); POTASSIUM SERUM 4.4 MEQ/L (3.5-5.1); SODIUM LEVEL 143 MEQ/L (136-145); TOTAL PROTEIN 6.4 GM/DL (6.4-8.2); URIC ACID 4.6 MG/DL (2.6-6.0)
== END ==
LOC: M SFHCPLAZ 10:15
DX: I10 Essential (primary) hypertension (principal); M81.0 Age-related osteoporosis without current pathological fracture
CPT/HCPCS: 83735

== ENCOUNTER → 2018-09-19 | Outpatient (REF) | payer MEDICARE, OTHER ==
[~2018-09-19] MED LIST changes: -/ADVA50050 IN; -/CELE20CA PO; -/MAGN64TA PO; -/ONDA4TA JT; -/TIOT18INH INH; -/ZIAC5TA OR; -ACET1TAB17 PO; +ACET1TAB55 PO; +ADVA1AER2 IN; -ASPI81TA PO; +ASPI81TAEC PO; +AZIT-12 PO; -BISO10TA PO; +BISO10TA13 PO; +CALC12504 PO; +CEFD1CAP8 PO; +CELE1CAP4 PO; +CHIL1CHW5 PO; +CHOL4POW4 PO; -D 101TAB PO; +FLUT1SPR2; +FLUT50SP12; -FLUTISP; -LASI20TA PO; +LASI20TA3 PO; +MAG-TAB PO; +MILK120011 PO; -MILKSUS PO; -MUCU400T8 PO; +MUCU400T9 PO; +OMEG100011 PO; +ONDA-1 JT; -PANT20TA PO; +PANT20TA2 PO; +PANT40TA3 PO; +PRED10TA2 PO; +SENN17.2 OR; -SENO17.2 OR; -VANC250C2 PO; +VANC250C3 PO; +VITA-144 PO; +ZIAC1TAB OR
[2018-09-19 10:47] LABS: HEMATOCRIT 40.5 % (36.0-47.0); MEAN CORPUSCULAR HEMOGLOBIN 31.7 pg (27.0-33.0); MEAN CORPUSCULAR HGB CONC 32.1 g/dl (32.0-36.5); MEAN CORPUSCULAR VOLUME 98.8 fl (80.0-96.0); PLATELET COUNT, AUTOMATED 256 10^3/uL (150-450); WHITE BLOOD COUNT 9.9 10^3/uL (4.0-10.0)
[2018-09-19 11:22] LABS: ALBUMIN 3.2 GM/DL (3.2-5.2); ALT/SGPT 44 U/L (12-78); BILIRUBIN,TOTAL 0.8 MG/DL (0.2-1.0); BLOOD UREA NITROGEN 21 MG/DL (7-18); CALCIUM LEVEL 8.6 MG/DL (8.8-10.2); CARBON DIOXIDE LEVEL 32 MEQ/L (21-32); CHLORIDE LEVEL 109 MEQ/L (98-107); CREATININE FOR GFR 0.75 MG/DL (0.55-1.30); GLOMERULAR FILTRATION RATE > 60.0 (>32); GLUCOSE, FASTING 92 MG/DL (70-100); MAGNESIUM LEVEL 2.3 MG/DL (1.8-2.4); POTASSIUM SERUM 4.1 MEQ/L (3.5-5.1); SODIUM LEVEL 144 MEQ/L (136-145); TOTAL PROTEIN 5.7 GM/DL (6.4-8.2)
== END ==
LOC: M SFHCPLAZ 08:59
PROVIDERS: ATTEND Internal Medicine
DX: Z23 Encounter for immunization (principal); J44.9 Chronic obstructive pulmonary disease, unspecified; I10 Essential (primary) hypertension; F41.9 Anxiety disorder, unspecified